=== PATIENT | female | born 1950 | race African-American/Black ===

== ENCOUNTER 2016-12-03 19:10 | Inpatient (IN) | payer MEDICARE ==
--- NOTE | ~2016-12-03 | OR ---
Unit #: [id number] #: [id number] Patient: AVIVA HEREDIA [id number] [address] [address] [id number] I MR#: [id number] NAME: AVIVA HEREDIA ROOM: 559 Date of Procedure: 12/04/2016 Admission Date: 12/03/2016 Surgeon: Kemar Hollis M.D. : 1950 Attending Physician: Norris Hitchcock M.D. Primary Care Physician: [facility] OPERATIVE REPORT PRIMARY CARE PHYSICIAN Formerly [facility]. PREOPERATIVE DIAGNOSES Melena and possible upper gastrointestinal bleed. PROCEDURES PERFORMED 1. Upper gastrointestinal endoscopy and biopsy. 2. Upper gastrointestinal endoscopy and hemorrhage control. POSTOPERATIVE DIAGNOSES The patient had a large anterior duodenal ulcer. This was about 1.5 cm in size with a grayish-white ulcer crater base. There was a clearcut visible vessel in the middle of the ulcer base. Otherwise examination was normal up to third part of duodenum. The visible vessel was ablated using heater probe application. In addition, a biopsy was obtained from the antrum for CLOtest. RECOMMENDATIONS The patient should stay on Protonix 40 mg p.o. b.i.d. for the next 3 months. She can be started on diet as tolerated and should be able to go home tomorrow if her hemoglobin stays stable. SEDATION USED MAC. DESCRIPTION OF PROCEDURE Following detailed explanation of the potential risks and complications of an upper endoscopy, namely perforation, bleeding, and complications related to sedation, the patient was brought to GI lab and laid in the left lateral decubitus position. Lubricated tip of the Olympus video upper endoscope was passed through the bite block into the proximal esophagus under direct vision. The entire esophageal mucosa was examined and appeared normal. Z-line was nicely demarcated, there being no esophagitis or hiatus hernia. The scope was advanced into the gastric cavity and the latter was insufflated. Mucosa of the fundus, body, and antrum examined and appeared unremarkable. Pylorus was intubated with visualization of the duodenal bulb. The latter was noted to have an anterior duodenal ulcer. This was about 1.5 cm in size with a grayish-white ulcer base and clearcut visible vessel in the middle of the ulcer. The second and third part of duodenum were normal. Attention was Unit #: [id number] #: [id number] Patient: AVIVA HEREDIA paid to the ulcer using heater probe. The visible vessel was ablated using coagulation. Excellent hemostasis was achieved and photodocumentation was obtained. The scope was then withdrawn in the gastric cavity and retroverted whereupon incisura, cardia, and greater curve was examined. Biopsies obtained from the antrum for CLOtest. The scope was withdrawn in the distal esophagus. Entire esophageal mucosa was examined all the way up to pharynx. No additional findings noted. The patient tolerated the procedure without any postprocedure complications. Dictated by... Luba Mancia/noah TD: 12/05/2016 03:01 JOB #: [id number] OPERATIVE REPORT X Kemar Hollis MD X PROCEDURE OPERATIVE NOTE
--- NOTE | ~2016-12-03 | HP ---
Unit #: [id number] #: [id number] Patient: AVIVA HEREDIA. [id number] [address] [address] [id number] I MR#: [id number] NAME: AVIVA HEREDIA. ROOM: 39818 Age: 66 Sex: F Admission Date: 12/03/2016 : 1950 Attending Physician: Cortney Acosta M.D. Primary Care Physician: [facility]. HISTORY AND PHYSICAL CHIEF COMPLAINT Bloody stool. HISTORY OF PRESENT ILLNESS The patient is a 66-year-old female with the past medical history of hypertension, diabetes, history of GI bleed with duodenal ulcer, presented to the emergency room complaining of the bloody stool. The patient stated that the bloody stool started yesterday. It was dark red in color associated with some nausea. The patient denies any chest pain, palpitations. The patient complains of dizziness and denies any fall. The patient denies any recent intake of oral pain killers. The patient had upper endoscopy by [facility] that showed a small, nonbleeding duodenal ulcer and hiatal hernia. Patient denies any fever, chills, shortness of breath. PAST MEDICAL HISTORY 1. History of GI bleed. 2. Hypertension. 3. Hyperlipidemia. 4. Diabetes. PAST SURGICAL HISTORY 1. Colonoscopy. 2. Hysterectomy. HOME MEDICATIONS 1. Metformin. 2. Glipizide XL. 3. Lisinopril/hydrochlorothiazide. 4. Norvasc. 5. Ranitidine. 6. Amitriptyline. ALLERGIES No known drug allergies. SOCIAL HISTORY The patient lives with her daughter. No tobacco or alcohol use. She works in home health. FAMILY HISTORY Notable for having stomach cancer. REVIEW OF SYSTEMS A 14-point review of systems performed and only pertinent positive Unit #: [id number] #: [id number] Patient: AVIVA HEREDIA. findings are described above, remaining are negative. PHYSICAL EXAMINATION VITAL SIGNS: Temperature 98.7, pulse 135, respiratory rate 18, blood pressure 156/82, saturating 100% at room air. GENERAL: Patient is lying on the bed not in acute distress. HEENT: Atraumatic, normocephalic. Pupils equal, round, and reactive to light and accommodation. Extraocular movements are intact. Positive for pallor. No icterus. NECK: Supple. No JVD. LUNGS: Clear to auscultation bilaterally. No rhonchi, no wheezing. HEART: Regular rate and rhythm. ABDOMEN: Soft, positive bowel sounds. No abdominal tenderness. EXTREMITIES: No cyanosis, no clubbing. NEUROLOGIC: Alert, awake, oriented. No gross focal motor deficit. PSYCHIATRIC: Mood and affect are appropriate. DIAGNOSTIC STUDIES LABORATORY: Glucose 171, BUN 19, creatinine 1.0, sodium 141, potassium 3.1, chloride 107, bicarb 26, calcium 9.5, total protein 7.5, AST 38, ALT 41, alkaline phosphatase 97, lipase 19. INR 1.0. WBC 11.6, hemoglobin 8.9, hematocrit 26.3, platelets 313. ASSESSMENT AND PLAN 1. Gastrointestinal bleed. 2. Anemia. 3. Hypokalemia. 4. Hypertension. PLAN 1. Admit patient as inpatient with telemetry. 2. Continue with IV fluids D5 half NS plus 20 mEq KCl. 3. Patient will be on a diabetic diet. 4. Keep patient n.p.o. for upper endoscopy. 5. Continue with Protonix 40 mg b.i.d. 6. Ask for gastroenterology consult for upper endoscopy. 7. Type and cross 2 units of PRBC and transfuse one unit tonight. 8. Repeat CBC and BMP in the morning. 9. Accu-Cheks a.c. and h.s. and low dose sliding scale insulin. 10. Further recommendations will follow. Dictated by Luba Blanchard TD: 12/03/2016 20:19 JOB #: [id number] Unit #: [id number] #: [id number] Patient: AVIVA HEREDIA HISTORY AND PHYSICAL X X HISTORY AND PHYSICAL
--- NOTE | ~2016-12-03 | DS ---
Unit #: [id number] #: [id number] Patient: AVIVA HEREDIA [id number] [address] [place], [place] [address] [id number] MR#: [id number] NAME: AVIVA HEREDIA ROOM: 55 Age: 66 Sex: F Admission Date: 12/03/2016 : 1950 Discharge Date: 12/05/2016 Attending Physician: Norris Hitchcock M.D. Primary Care Physician: [facility]. DISCHARGE SUMMARY CHIEF COMPLAINT Bloody stool, for the diagnosis of acute blood loss anemia secondary to duodenal ulcer. PROCEDURES DONE EGD. CONSULTANTS Dr. Hollis. FINDINGS There was a 1.5 cm large, anterior, duodenal ulcer with a grayish-white ulcer crater base and a clearcut visible vessel in the middle of the ulcer base which was cauterized. HISTORY OF PRESENT ILLNESS The patient is a 66-year-old -[place] lady with a past medical history of hypertension, diabetes, history of GI bleed in the past with duodenal ulcer, presented to the hospital on the because of a GI bleed. HOSPITAL COURSE She was seen by GI team and Dr. Hollis. She had an ulcer with a visible vessel. The vessel was cauterized. Dr. Hollis recommended her to be on Protonix b.i.d. and recommended her to follow up as an outpatient. Her hemoglobin is stable in the last 24 hours. I spoke with the patient and she is agreeable to go home and follow with him as an outpatient. I explained to her to avoid NSAIDs. On the day of the discharge her physical examination: VITAL SIGNS - temperature 97.9, pulse rate 105, respiratory rate 18, blood pressure 148/87. The patient is alert, oriented x3, lying in the bed, in no acute distress. HEENT - normocephalic, atraumatic. No icterus. PERRLA. Extraocular movements intact. NECK is supple. HEART - S1, S2. Tachycardic. CHEST - bilateral equal air entry, clear to auscultation. ABDOMEN: Soft, nontender. EXTREMITIES: No edema. Normal pulses. I discussed with Dr. Hollis and he said it is okay to discharge her and follow with him as an outpatient. DISCHARGE MEDICATIONS Her discharge medications include: 1. Amitriptyline 50 mg daily. Unit #: [id number] #: [id number] Patient: AVIVA HEREDIA 2. Glucophage 1000 mg twice a day. 3. Amlodipine 10 mg daily. 4. Hydrochlorothiazide 25 mg daily. 5. Lisinopril 40 mg daily. 6. Ranitidine 150 mg daily. 7. Protonix 40 mg twice a day. 8. Glucotrol XL 5 mg p.o. daily. She was instructed to follow with her primary care in one to two weeks as well as with Dr. Hollis. Total time spent in her discharge - 35 minutes. Dictated by... Norris Hitchcock M.D. Debi TD: 12/06/2016 15:25 JOB #: [id number] DISCHARGE SUMMARY X X DISCHARGE SUMMARY
--- NOTE | ~2016-12-03 | CO ---
Unit #: [id number] #: [id number] Patient: AVIVA HUNT [id number] [address] [address] [id number] MR#: [id number] NAME: AVIVA HUNT ROOM: 559 Age: 66 Sex: F Admission Date: 12/03/2016 : 1950 Attending Physician: Norris Hitchcock M.D. Primary Care Physician: [facility]. Consultation Date: 12/04/2016 CONSULTATION REPORT ATTENDING PHYSICIAN Dr. Cortney Acosta REASON FOR CONSULTATION Melena. HISTORY Ms. Hunt is a pleasant 66-year-old -Malag[place] female who lives at home with her daughter. The patient works for [employer]. She noticed black tarry stools a couple of days, the day before yesterday and yesterday, and ended up coming to the hospital yesterday evening. There is no history of syncope or chest pain nor any history of shortness of breath. She also mentions that she had epigastric pain which has been present for the past one week to ten days. There is no history of nausea or vomiting. PAST MEDICAL HISTORY Significant for history of: 1. Hypertension. 2. Hyperlipidemia. 3. Diabetes. 4. History of GI bleed in the past. PREVIOUS SURGERIES Include a hysterectomy. MEDICATIONS Medications at home included: 1. Amitriptyline. 2. Norvasc. 3. Glipizide. 4. Metformin. 5. Lisinopril with hydrochlorothiazide. ALLERGIES She has no known drug allergies. SOCIAL HISTORY The patient lives at home with her daughter. Works for home health. Does not smoke or drink alcohol. FAMILY HISTORY Significant for stomach cancer. Unit #: [id number] #: [id number] Patient: AVIVA HUNT REVIEW OF SYSTEMS A detailed review of organ systems does not reveal any recent weight loss. No history of fevers, chills, rigors. No history of headaches, seizures, chest pain, syncope. No history of cough, expectoration or hemoptysis. No history of dysuria, hematuria or pyuria. No history of focal seizures or extremity weakness. The rest of the review of organ system is unremarkable. PHYSICAL EXAMINATION GENERAL APPEARANCE: She is alert, oriented, appears comfortable. VITAL SIGNS: Vital signs stable with a temperature of 98.3, pulse is 110 per minute and regular, respiratory rate is 18, blood pressure is 155/84. She has mild pallor, there being no icterus, lymphadenopathy or peripheral edema. CARDIOVASCULAR EXAMINATION: Normal heart sounds. No murmurs. LUNGS: Auscultation over the lungs reveals normal breath sounds. Good air entry. ABDOMEN: Soft, nontender. Liver and spleen are not palpable. Bowel sounds normal. DIAGNOSTIC STUDIES LABORATORY: Laboratory evaluation reveals a hemoglobin of 8.7. A baseline hemoglobin last year was 10.3. White count is raised. She had a leukocytosis yesterday which has now normalized. Platelet count is normal. INR is 1.0. Serum chemistry shows normal BUN and creatinine, a potassium of 3.1. Glucose 153. LFTs are borderline high ALT and alkaline phosphatase. CLINICAL IMPRESSION The patient does have some tenderness in the epigastric area along with history of melena. The differential diagnosis would include peptic ulcer disease and angiodysplasia as well as malignancy of the GI tract. An upper endoscopy is warranted to be scheduled shortly. Pros and cons of the procedure, potential risks and complications discussed with the patient. She was reassured. Thank you for asking me to see this pleasant woman. I appreciate the consult. Dictated by... Luba Mancia/trinidad TD: 12/04/2016 09:34 JOB #: [id number] Unit #: [id number] #: [id number] Patient: AVIVA HUNT CONSULTATION REPORT X Kemar Hollis MD X CONSULTATION REPORT
[2016-12-03 17:16] LABS: BASOPHIL% 0.3 % (0-2.5); EOSINOPHIL# 0.1 X10e3 (0-0.7); EOSINOPHIL% 0.9 % (0.0-7.0); HEMATOCRIT 26.3 % (35.0-45.0); HEMOGLOBIN 8.9 gm/dL (12.0-16.0); LYMPHOCYTE# 3.3 X10e3 (1.0-3.5); MEAN CELL VOLUME 93.4 FL (83-96); MEAN CORPUSCULAR HEMOGLOBIN 31.5 PG (28-34); MEAN CORPUSCULAR HGB CONC 33.8 g/dL (30-36); MEAN PLATELET VOLUME 7.2 FL (6.5-11.5); MONOCYTE# 0.5 X10e3 (0-1.0); MONOCYTE% 4.2 % (3.0-12.0); NEUTROPHIL# 7.8 X10e3 (1.5-7.1); NEUTROPHIL% 66.6 % (40-75); PLATELET COUNT 313 X10e3 (140-420); RED BLOOD COUNT 2.81 X10e (3.90-5.30); RED CELL DISTRIBUTION WIDTH 13.7 % (11.0-15.5); WHITE BLOOD COUNT 11.6 X10e3 (4.0-10.5)
[2016-12-03 17:17] LABS: DIFF IND NO
[2016-12-03 17:31] LABS: PARTIAL THROMBOPLASTIN TIME 21.2 SECONDS (23.5-31.3); PROTHROMBIN TIME (PATIENT) 10.4 SECONDS (9.6-11.5)
[2016-12-03 17:43] LABS: ALBUMIN SERUM 4.4 g/dL (3.5-5.0); ALKALINE PHOSPHATASE 97 U/L (32-92); ALT (SGPT) 41 U/L (10-40); AST (SGOT) 38 U/L (10-42); BILIRUBIN,TOTAL 0.4 mg/dL (0.2-2.0); BLOOD UREA NITROGEN 19 mg/dL (9-23); CALCIUM SERUM 9.5 mg/dL (8.4-10.2); CARBON DIOXIDE 26 mmol/L (22-31); CHLORIDE 107 mmol/L (100-111); GLOM FILT RATE Estimated ABOVE60 mL/min (>60); GLUCOSE FASTING 171 mg/dL (70-110); LIPASE 19 U/L (22-51); POTASSIUM 3.1 mmol/L (3.5-5.1); PROTEIN TOTAL SERUM 7.5 g/dL (6.0-8.3); SODIUM 141 mmol/L (135-145)
[2016-12-03 17:50] LABS: BILIRUBIN, DIRECT <0.1 mg/dL (0.0-0.2); BILIRUBIN,INDIRECT 0.3 mg/dL (0.0-0.9)
[~2016-12-03 19:10] MED LIST: AMITRIPTYLINE H50 MG PO; AMLODIPINE BESY10 MG PO; CARAFATE1 G PO; FERROUS GLUCON324 MG PO; FLEXERIL10 MG PO; GLIPIZIDE5 MG/BOTT1 PO; GLUCOTROL XL PO; HYDROCHLOROTHIA25 MG PO; IBUPROFEN800 MG PO; METFORMIN HCL500 M1 PO; METFORMIN PO; PRINIVIL40 MG PO; PROTONIX PO; TOPROL XL100 MG PO; ZANTAC150 M1 PO; ZESTRIL40 MG PO
[2016-12-04 05:43] LABS: HEMATOCRIT 25.1 % (35.0-45.0); HEMOGLOBIN 8.7 gm/dL (12.0-16.0); MEAN CELL VOLUME 91.2 FL (83-96); MEAN CORPUSCULAR HEMOGLOBIN 31.4 PG (28-34); MEAN CORPUSCULAR HGB CONC 34.5 g/dL (30-36); MEAN PLATELET VOLUME 7.5 FL (6.5-11.5); RED BLOOD COUNT 2.76 X10e (3.90-5.30); RED CELL DISTRIBUTION WIDTH 14.6 % (11.0-15.5); WHITE BLOOD COUNT 9.1 X10e3 (4.0-10.5)
[2016-12-04 06:52] LABS: BLOOD UREA NITROGEN 14 mg/dL (9-23); BUN/CREATININE RATIO 15.55; CALCIUM SERUM 8.8 mg/dL (8.4-10.2); CARBON DIOXIDE 24 mmol/L (22-31); CHLORIDE 112 mmol/L (100-111); CREATININE SERUM 0.9 mg/dL (0.6-1.4); GLOM FILT RATE Estimated ABOVE60 mL/min (>60); GLUCOSE FASTING 153 mg/dL (70-110); POTASSIUM 3.1 mmol/L (3.5-5.1); SODIUM 143 mmol/L (135-145)
[2016-12-04 12:41] LABS: HEMATOCRIT 27.7 % (35.0-45.0); HEMOGLOBIN 9.6 gm/dL (12.0-16.0); MEAN CELL VOLUME 91.3 FL (83-96); MEAN CORPUSCULAR HEMOGLOBIN 31.6 PG (28-34); MEAN CORPUSCULAR HGB CONC 34.6 g/dL (30-36); MEAN PLATELET VOLUME 7.2 FL (6.5-11.5); RED BLOOD COUNT 3.03 X10e (3.90-5.30); RED CELL DISTRIBUTION WIDTH 14.6 % (11.0-15.5); WHITE BLOOD COUNT 8.6 X10e3 (4.0-10.5)
[2016-12-05 06:47] LABS: HEMATOCRIT 27.3 % (35.0-45.0); HEMOGLOBIN 9.2 gm/dL (12.0-16.0); MEAN CELL VOLUME 91.8 FL (83-96); MEAN CORPUSCULAR HGB CONC 33.8 g/dL (30-36); MEAN PLATELET VOLUME 7.1 FL (6.5-11.5); RED BLOOD COUNT 2.97 X10e (3.90-5.30); RED CELL DISTRIBUTION WIDTH 15.1 % (11.0-15.5); WHITE BLOOD COUNT 7.5 X10e3 (4.0-10.5)
[2016-12-05 07:32] LABS: ALBUMIN SERUM 3.4 g/dL (3.5-5.0); ALKALINE PHOSPHATASE 83 U/L (32-92); ALT (SGPT) 38 U/L (10-40); AST (SGOT) 36 U/L (10-42); BILIRUBIN,TOTAL 0.4 mg/dL (0.2-2.0); BLOOD UREA NITROGEN 9 mg/dL (9-23); BUN/CREATININE RATIO 12.85; CARBON DIOXIDE 22 mmol/L (22-31); CHLORIDE 110 mmol/L (100-111); CREATININE SERUM 0.7 mg/dL (0.6-1.4); GLOM FILT RATE Estimated ABOVE60 mL/min (>60); GLUCOSE FASTING 163 mg/dL (70-110); MAGNESIUM 1.8 mg/dL (1.6-3.0); SODIUM 142 mmol/L (135-145)
[2016-12-05] MEDS ORDERED: PROTONIX PO (14:29)
== END 2016-12-05 15:55 | disposition home or self-care (01) | DRG 378 ==
LOC: CED 19:10 → CEDOF 19:11 → C5B 23:35
PROVIDERS: Internal Medicine; Internal Medicine Gastroenterology
PROC: 0DB68ZX Excision of Stomach, Via Natural or Artificial Opening Endoscopic, Diagnostic (ICD-10-PCS; principal; 2016-12-04 10:21)
PROC: 0D598ZZ Destruction of Duodenum, Via Natural or Artificial Opening Endoscopic (ICD-10-PCS; 2016-12-04 10:21)
PROC: 30233N1 Transfusion of Nonautologous Red Blood Cells into Peripheral Vein, Percutaneous Approach (ICD-10-PCS; 2016-12-04 10:21)
DX: K26.4 Chronic or unspecified duodenal ulcer with hemorrhage (principal); D62 Acute posthemorrhagic anemia; I10 Essential (primary) hypertension; E78.5 Hyperlipidemia, unspecified; E11.9 Type 2 diabetes mellitus without complications; Z79.84 Long term (current) use of oral hypoglycemic drugs; Z90.710 Acquired absence of both cervix and uterus; E87.6 Hypokalemia; F32.9 Major depressive disorder, single episode, unspecified
CPT/HCPCS: 36415; 80048; 80053; 80076; 82947; 83690; 83735; 85025; 85027; 85610; 85730; 86850; 86900; 86901; 86923; 87077; 96361; 96374; 96375; 99285; C9113; J1815; J2765; J3475; P9016